=== PATIENT | female | born 1970 | race African-American/Black ===

== ENCOUNTER 2020-07-05 20:49 | Emergency (ER) | payer MEDICAID ==
[~2020-07-05] VITALS: Ht 175.3 cm; Wt 77.1 kg
[2020-07-05] MEDS ORDERED: KEPPRA1000 MG ORAL (20:52)
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
[2020-07-05 21:00] VITALS: BP 114/82
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
--- NOTE | 2020-07-05 21:03 | NUR ---
ED Nurse Note: patient down to imaging via gurney with production technologist.
--- NOTE | 2020-07-05 21:21 | NUR ---
ED Nurse Note: pt back from imaging via [place] with skin care technician.
--- NOTE | 2020-07-05 21:29 | Diagnostic Imaging Report ---
ADDENDUM - Added by Shara Zeng M.D. on 07/05/2020 10:09 PM (-08:00) Addendum: CTDI is 19.4. ALT is 459.9 EXAM: CT Cervical Spine Without Intravenous Contrast CLINICAL HISTORY: PAIN TECHNIQUE: Axial computed tomography images of the cervical spine without intravenous contrast. CTDI is 53.4 mGy and DLP is 937.8 mGy-cm. One or more of the following dose reduction techniques were used: automated exposure control, adjustment of the mA and/or kV according to patient size, use of iterative reconstruction technique. COMPARISON: No relevant prior studies available. FINDINGS: Vertebrae: There is slight reversal of the normal cervical lordosis apex at C5. There is degenerative osseous fusion of the left facets of C4 and C5. Punctate ossification adjacent to the dens and anterior arch of C1 is nonspecific but and may represent either a dystrophic calcification versus hydroxyapatite deposition. No acute fracture. Discs/spinal canal/neural foramina: No acute findings. No spinal canal stenosis. Soft tissues: Unremarkable. IMPRESSION: No acute fracture.
--- NOTE | 2020-07-05 21:45 | NUR ---
ED Nurse Note: [employer] at bedside
--- NOTE | 2020-07-05 21:55 | Diagnostic Imaging Report ---
ADDENDUM - Added by Shara Zeng M.D. on 07/05/2020 10:10 PM (-08:00) CTDI is 53.4 and DLP is 937.8 EXAM: CT Head Without Intravenous Contrast CLINICAL HISTORY: PAIN TECHNIQUE: Axial computed tomography images of the head/brain without intravenous contrast. CTDI is 19.4 mGy and DLP is 459.9 mGy-cm. One or more of the following dose reduction techniques were used: automated exposure control, adjustment of the mA and/or kV according to patient size, use of iterative reconstruction technique. COMPARISON: No relevant prior studies available. FINDINGS: Brain: Unremarkable. No hemorrhage. No significant white matter disease. No edema. Ventricles: Unremarkable. No ventriculomegaly. Bones/joints: Unremarkable. No acute fracture. Soft tissues: Unremarkable. Sinuses: Unremarkable as visualized. No acute sinusitis. Mastoid air cells: Unremarkable as visualized. No mastoid effusion. IMPRESSION: No acute intracranial normality.
[2020-07-05 22:00] VITALS: BP 116/79
--- NOTE | 2020-07-05 22:10 | NUR ---
ED Nurse Note: ermd at bedside; c-collar removed.
[2020-07-05] MEDS ORDERED: Ketorolac 30mg Inj ONE (22:15)
[2020-07-05] MEDS ORDERED: ACETAMINOPHEN500 M3 ORAL (22:15)
[2020-07-05] MEDS ORDERED: Ketorolac 30mg Inj IV ONE (22:15)
[2020-07-05] MEDS ORDERED: IBUPROFEN400 M1 PO (22:15)
[2020-07-05 22:20] VITALS: BP 114/82
--- NOTE | 2020-07-05 22:20 | NUR ---
ER DISCHARGE NOTE: Patient is cleared to be discharged per ERMD, pt is aox4, on room air, with stable vital signs. pt was given dc and prescription instructions, pt was able to verbalize understanding, pt id band and iv site removed without complications. pt is able to ambulate with steady gait. pt took all belongings.
== END 2020-07-05 22:20 | disposition home or self-care (01) ==
LOC: EDBD 20:49 → EMR 21:02
DX: S16.1XXA Strain of muscle, fascia and tendon at neck level, initial encounter (principal); S09.90XA Unspecified injury of head, initial encounter; V43.62XA Car passenger injured in collision with other type car in traffic accident, initial encounter; Y92.410 Unspecified street and highway as the place of occurrence of the external cause; G40.909 Epilepsy, unspecified, not intractable, without status epilepticus
CPT/HCPCS: 70450; 72125; 96374; J1885; Z7502; 99284